=== PATIENT | male | born 2000 | race Caucasian/White ===

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

== ENCOUNTER 2022-05-18 23:40 | Emergency (ER) | payer OTHER ==
[2022-05-19 00:04] VITALS: TEMP 98.7
[2022-05-19] MEDS ORDERED: AZELASTINE 137MCG/SPRAY NASAL ONE (00:29)
--- NOTE | 2022-05-19 00:33 | ED ---
ENT HPI - General Chief complaint: ENT Stated complaint: something wiggling in nose Time Seen by Provider: 05/19/22 00:04 Source: patient, RN notes reviewed Mode of arrival: ambulatory Limitations: no limitations - History of Present Illness Initial comments: This is a 21-year-old male who presents to the emergency department for "something wiggling in my nose". Patient states that this has been an intermittent problem over the last month. States that it seems to occur at night. Also feels like the sensation of movement has been moving up into his head and near the ears. He has had intermittent problems with nasal drainage, congestion, and minor nosebleeds. He does not have any pain with this. Not currently being treated for allergies. Denies any history of similar symptoms in the past. He has not discussed this with his primary care provider or any other medical providers. Denies any fevers, chills, sore throat, cough, dyspnea, chest pain, palpitations, abdominal pain, nausea, vomiting, diarrhea, back pain, or headaches. - Related Data Home Medications Medication Instructions Recorded Confirmed No Known Home Medications 11/28/18 11/28/18 Allergies Allergy/AdvReac Type Severity Reaction Status Date / Time No Known Allergies Allergy Verified 12/09/21 20:43 Review of Systems ROS Statement: Those systems with pertinent positive or pertinent negative responses have been documented in the HPI. ROS Other: All systems not noted in ROS Statement are negative. Past Medical History Past Medical History: Asthma History of Any Multi-Drug Resistant Organisms: None Reported Past Surgical History: No Surgical Hx Reported Past Psychological History: ADD/ADHD Smoking Status: Vaper Past Alcohol Use History: None Reported Past Drug Use History: None Reported General Exam Limitations: no limitations General appearance: alert, in no apparent distress Head exam: Present: atraumatic, normocephalic, normal inspection ENT exam: Present: normal oropharynx, mucous membranes moist, TM's normal bilaterally, normal external ear exam, other (Inspection of the bilateral nares reveals no evidence of foreign bodies, mucus, or masses.) Respiratory exam: Present: normal lung sounds bilaterally. Absent: respiratory distress, wheezes, rales, rhonchi, stridor Cardiovascular Exam: Present: regular rate, normal rhythm, normal heart sounds. Absent: systolic murmur, diastolic murmur, rubs, gallop, clicks Neurological exam: Present: alert, oriented X3, CN II-XII intact Psychiatric exam: Present: normal affect, normal mood Skin exam: Present: warm, dry, intact, normal color. Absent: rash Course Vital Signs 05/19/22 05/19/22 00:01 00:42 Temperature 98.7 F Pulse Rate 88 90 Respiratory 19 18 Rate Blood Pressure 155/99 148/86 O2 Sat by Pulse 98 99 Oximetry Medical Decision Making - Medical Decision Making This is a 21-year-old male who presents to the emergency department for a foreign body sensation in the nose. Was pt. sent in by a medical professional or institution? @ -No Did you speak to anyone other than the patient for history? @ -No Did you review nursing and triage notes? @ -Yes, and I agree, it is accurate with regards to the patient's symptoms. Were old charts reviewed? @ -No Differential Diagnosis? @ -Differential foreign body sensation in the nose: Dust mites, parasites, allergic rhinitis, sinusitis, this is not meant to be an all-inclusive list. What testing was considered but not performed? (CT, X-rays, U/S, labs)? Why? @ -None What meds were considered but not given? Why? @ -None Did you discuss the management of the patient with other professionals? @ -No Did you reconcile home meds? @ -No Was smoking cessation discussed for >3mins.? @ -No Was critical care preformed (if so, how long)? @ -No Were there social determinants of health that impacted care today? How? (Homelessness, low income, unemployed, alcoholism, drug addiction, transportation, low edu. Level, literacy, decrease access to med. care, long term, rehab)? @ -No Was there de-escalation of care discussed even if they declined? (Discuss DNR or withdrawal of care, Hospice)? @ -No What co-morbidities impacted this encounter? (DM, HTN, Smoking, COPD, CAD, Cancer, CVA, Hep., AIDS, mental health diagnosis, sleep apnea, morbid obesity)? @ -None Was patient admitted / discharged? @ -Discharged. Physical examination of the ears, nose, and throat was entirely unremarkable aside from a minor cerumen impaction. I did not identify any evidence of foreign bodies or insects. Discussed with the patient that at this time we cannot visualize any abnormalities to account for his symptoms. He may have dust mites related to allergic rhinitis. He was given a bottle of azelastine nasal spray in the emergency department. Advised to use this twice daily in the event there is an allergic component to see if this offers any symptomatic relief. Also recommended he try a neti pot to rinse his sinuses. Information for ENT follow-up provided. He is advised to contact them for a follow-up appointment and to also follow-up with his primary care provider. Undiagnosed new problem with uncertain prognosis? @ -None Drug Therapy requiring intensive monitoring for toxicity (Heparin, Nitro, Insulin, Cardizem)? @ -None Were any procedures done? @ -None Diagnosis/symptom? @ -Allergic rhinitis Acute, or Chronic, or Acute on Chronic? @ -Acute Uncomplicated (without systemic symptoms) or Complicated (systemic symptoms)? @ -Uncomplicated Side effects of treatment? @ -None Exacerbation, Progression, or Severe Exacerbation] @ -Not applicable Poses a threat to life or bodily function? @ -No Return precautions reviewed in depth, the patient is instructed to return to the emergency department with any new, worsening, or concerning symptoms. Patient verbalized understanding. This case was discussed in detail with the attending ED physician, Dr. Lilly. Presentation, findings, and treatment plan discussed in detail as well. Disposition Clinical Impression: Allergic rhinitis Disposition: HOME SELF-CARE Instructions (If sedation given, give patient instructions): Allergic Rhinitis (ED) Additional Instructions: Return to the emergency department with any new, worsening, or concerning symptoms. Use the nasal spray provided as 2 sprays in each nostril twice daily. Follow up with your primary care provider in 1-2 days and discuss a referral to ENT. You can try contacting the office listed below to see if they will schedule you without an official referral from your primary care provider. You can also try using a neti pot. Is patient prescribed a controlled substance at d/c from ED?: No Referrals: Amberly Anne NPC [REFERRING] - 1-2 days Otoniel Harrison DO [Doctor of Osteopathic Medicine] - 1-2 days
[2022-05-19 00:47] VITALS: BP 148/86; PULSE 90; RESP 18
== END 2022-05-19 00:55 | disposition home or self-care (01) ==
LOC: EC 23:40
DX: J30.9 Allergic rhinitis, unspecified (principal); F17.290 Nicotine dependence, other tobacco product, uncomplicated
CPT/HCPCS: 99282

== ENCOUNTER 2022-10-19 20:10 | Emergency (ER) | payer OTHER ==
[2022-10-19 20:17] VITALS: TEMP 98.7
[2022-10-19] MEDS ORDERED: TRANEXAMIC ACID 1,000 MG/10 ML VIAL MISCELLANE ONE (20:26)
[2022-10-19] MEDS ORDERED: GELATIN SPONGE,ABSORB (LARGE) 1 EACH SPONGE TOPICAL STA (20:27)
--- NOTE | 2022-10-19 20:31 | ED ---
General Adult HPI - General Chief complaint: Wound/Laceration Stated complaint: LEFT THUMB CUT OFF TIP Time Seen by Provider: 10/19/22 20:19 Source: patient, RN notes reviewed Mode of arrival: ambulatory Limitations: no limitations - History of Present Illness Initial comments: 22-year-old male presents to the emergency department chief complaint of left thumb injury. He states that he was cutting onions at work when the knife slipped and cut the tip of his left thumb. He reports that this is very painful. He has normal range of motion to his fingers. He admits to a throbbing feeling in his thumb. Patient is up-to-date on his tetanus vaccination. - Related Data Previous Rx's Medication Instructions Recorded Cephalexin [Keflex] 500 mg PO Q6HR #20 cap 10/19/22 Allergies Allergy/AdvReac Type Severity Reaction Status Date / Time No Known Allergies Allergy Verified 10/19/22 21:32 Review of Systems ROS Statement: Those systems with pertinent positive or pertinent negative responses have been documented in the HPI. ROS Other: All systems not noted in ROS Statement are negative. Past Medical History Past Medical History: Asthma History of Any Multi-Drug Resistant Organisms: None Reported Past Surgical History: No Surgical Hx Reported Past Psychological History: ADD/ADHD Smoking Status: Vaper Past Alcohol Use History: Rare Past Drug Use History: None Reported General Exam Limitations: no limitations General appearance: alert, in no apparent distress Head exam: Present: atraumatic, normocephalic, normal inspection Eye exam: Present: normal appearance ENT exam: Present: normal exam, mucous membranes moist Neck exam: Present: normal inspection. Absent: tenderness, meningismus, lymphadenopathy Respiratory exam: Present: normal lung sounds bilaterally. Absent: respiratory distress, wheezes, rales, rhonchi, stridor Cardiovascular Exam: Present: regular rate, normal rhythm, normal heart sounds. Absent: systolic murmur, diastolic murmur, rubs, gallop, clicks Back exam: Present: normal inspection Neurological exam: Present: alert, oriented X3 Psychiatric exam: Present: normal affect, normal mood Skin exam: Present: warm, dry, normal color, other (superficial avulsion injury of left thumb) Course Vital Signs 10/19/22 10/19/22 20:13 21:45 Temperature 98.7 F Pulse Rate 109 H 68 Respiratory 20 16 Rate Blood Pressure 118/71 115/80 O2 Sat by Pulse 95 98 Oximetry Medical Decision Making - Medical Decision Making Was pt. sent in by a medical professional or institution (, PA, SENIOR ASIC DESIGN ENGINEER, urgent care, hospital, or correction...) When possible be specific @ -No Did you speak to anyone other than the patient for history (EMS, parent, family, police, friend...)? What history was obtained from this source @ -No Did you review nursing and triage notes (agree or disagree)? Why? @ -I reviewed and agree with nursing and triage notes Were old charts reviewed (outside hosp., previous admission, EMS record, old EKG, old radiological studies, urgent care reports/EKG's, correction records)? Report findings @ -No old charts were reviewed Differential Diagnosis (chest pain, altered mental status, abdominal pain women, abdominal pain men, vaginal bleeding, weakness, fever, dyspnea, syncope, headache, dizziness, GI bleed, back pain, seizure, CVA, palpatations, mental health, musculoskeletal)? @ -Differential Musculoskeletal Muscular strain, contusion, ligament sprain, fracture, arthritis, septic arthritis, bursitis, cellulitis, muscle spasm, nerve compression, DVT, arterial occlusion, herpes zoster, electrolyte abnormality, tumor.... This is not meant to be in all inclusive list EKG interpreted by me (3pts min.). @ -None X-rays interpreted by me (1pt min.). @ -None done CT interpreted by me (1pt min.). @ -None done U/S interpreted by me (1pt. min.). @ -None done What testing was considered but not performed or refused? (CT, X-rays, U/S, labs)? Why? @ -None What meds were considered but not given or refused? Why? @ -None Did you discuss the management of the patient with other professionals (professionals i.e. , DOTTY, SENIOR ASIC DESIGN ENGINEER, lab, RT, psych nurse, social worker assistant, hobber, teacher, special weapons unit officer, binder caser)? Give summary @ -No Was smoking cessation discussed for >3mins.? @ -No Was critical care preformed (if so, how long)? @ -No Were there social determinants of health that impacted care today? How? (Homelessness, low income, unemployed, alcoholism, drug addiction, transporta tion, low edu. Level, literacy, decrease access to med. care, prison, rehab)? @ -No Was there de-escalation of care discussed even if they declined (Discuss DNR or withdrawal of care, Hospice)? DNR status @ -No What co-morbidities impacted this encounter? (DM, HTN, Smoking, COPD, CAD, Cancer, CVA, ARF, Chemo, Hep., AIDS, mental health diagnosis, sleep apnea, morbid obesity)? @ -None Was patient admitted / discharged? Hospital course, mention meds given and route, prescriptions, significant lab abnormalities, going to OR and other pertinent info. @ -Discharged. Patient said the emergency department chief complaint of left thumb injury. He was cutting tomatoes at work when he cut the tip of his thumb with the knife. He admits to bleeding and pain. TXA was placed on the wound. Gelfoam placed on the wound and wound was dressed. Patient states that he is up to date on his tetanus vaccination. Patient was given Toradol and Tylenol for pain. Ice to alternate Tylenol and Motrin as needed for pain. Patient stable at time of discharge. Case discussed with my attending, Dr. Sneed Undiagnosed new problem with uncertain prognosis? @ -No Drug Therapy requiring intensive monitoring for toxicity (Heparin, Nitro, Insulin, Cardizem)? @ -No Were any procedures done? @ -No Diagnosis/symptom? @ -skin avulsion Acute, or Chronic, or Acute on Chronic? @ -acute Uncomplicated (without systemic symptoms) or Complicated (systemic symptoms)? @ -uncomplicated Side effects of treatment? @ -No Exacerbation, Progression, or Severe Exacerbation? @ -No Poses a threat to life or bodily function? How? (Chest pain, USA, [place], pneumonia, PE, COPD, DKA, ARF, appy, cholecystitis, CVA, Diverticulitis, Homicidal, Suicidal, threat to staff... and all critical care pts) @ -No Disposition Clinical Impression: Avulsion of skin of finger Disposition: HOME SELF-CARE Condition: Stable Instructions (If sedation given, give patient instructions): Skin Avulsion (ED) Additional Instructions: Please follow up with your primary care provider. Return to the emergency department for new or worsening symptoms. Prescriptions: Cephalexin [Keflex] 500 mg PO Q6HR #20 cap Is patient prescribed a controlled substance at d/c from ED?: No Referrals: None,Stated [Primary Care Provider] - 1-2 days Time of Disposition: 21:50
[2022-10-19] MEDS ORDERED: KETOROLAC 15 MG/ML 1 ML VIAL IM STA (20:42)
[2022-10-19] MEDS ORDERED: ACETAMINOPHEN TAB 500 MG TAB PO STA (20:42)
[2022-10-19 21:45] VITALS: BP 115/80; PULSE 68; RESP 16
== END 2022-10-19 21:58 | disposition home or self-care (01) ==
LOC: EC 20:10
DX: S63.105A Unspecified dislocation of left thumb, initial encounter (principal); J45.909 Unspecified asthma, uncomplicated; F17.290 Nicotine dependence, other tobacco product, uncomplicated; W26.0XXA Contact with knife, initial encounter
CPT/HCPCS: 99283; 96372; J1885

== ENCOUNTER 2022-11-22 05:17 | Emergency (ER) | payer OTHER ==
[2022-11-22 05:33] VITALS: RESP 16
--- NOTE | 2022-11-22 05:49 | ED ---
Chest Pain HPI - General Chief Complaint: Chest Pain Stated Complaint: Chest pain,jaw pain, headache Time Seen by Provider: 11/22/22 05:30 Source: patient Mode of arrival: ambulatory Limitations: no limitations - History of Present Illness Initial Comments: This patient is 22-year-old man who presents evaluation of left upper chest pains. He states that he was having difficult time getting to sleep tonight. This is not entirely unusual but tonight it was accompanied by pains that he described as being like static electricity. He was having these also up towards his neck. Patient was having palpitations. No other symptoms. Currently asymptomatic. MD Complaint: chest pain -: hour(s) Onset: during rest Pain Location: substernal, left chest Pain Radiation: neck Severity: moderate Quality: other (Like shocks) Consistency: intermittent Improves With: nothing Worsens With: nothing Treatments Prior to Arrival: none - Related Data Previous Rx's Medication Instructions Recorded Cephalexin [Keflex] 500 mg PO Q6HR #20 cap 10/19/22 Allergies Allergy/AdvReac Type Severity Reaction Status Date / Time No Known Allergies Allergy Verified 11/22/22 05:28 Review of Systems ROS Statement: Those systems with pertinent positive or pertinent negative responses have been documented in the HPI. ROS Other: All systems not noted in ROS Statement are negative. Constitutional: Denies: fever, chills Respiratory: Denies: cough, dyspnea Cardiovascular: Reports: as per HPI, chest pain, palpitations. Denies: edema Gastrointestinal: Denies: abdominal pain, nausea, vomiting, diarrhea Genitourinary: Denies: dysuria, hematuria Musculoskeletal: Denies: back pain Skin: Denies: rash Neurological: Denies: headache, weakness, numbness Psychiatric: Reports: anxiety EKG Findings - EKG Results: EKG: interpreted by ERMD, sinus rhythm, normal axis, normal QRS, normal ST/T EKG shows: bradycardia (Rate 56 bpm) Past Medical History Past Medical History: Asthma History of Any Multi-Drug Resistant Organisms: None Reported Past Surgical History: No Surgical Hx Reported Past Psychological History: ADD/ADHD Smoking Status: Vaper Past Alcohol Use History: Rare Past Drug Use History: None Reported General Exam Limitations: no limitations General appearance: alert, in no apparent distress Head exam: Present: atraumatic, normocephalic Eye exam: Present: normal appearance. Absent: scleral icterus, conjunctival injection ENT exam: Present: normal oropharynx Neck exam: Present: normal inspection Respiratory exam: Present: normal lung sounds bilaterally. Absent: respiratory distress, wheezes, rales, rhonchi, stridor Cardiovascular Exam: Present: regular rate, normal rhythm, normal heart sounds. Absent: systolic murmur, diastolic murmur, rubs, gallop GI/Abdominal exam: Present: soft. Absent: distended, tenderness, guarding, rebound, rigid, mass Extremities exam: Present: normal inspection, normal capillary refill. Absent: pedal edema, calf tenderness Back exam: Present: normal inspection. Absent: CVA tenderness (R), CVA tenderness (L) Neurological exam: Present: alert Skin exam: Present: warm, dry, intact, normal color. Absent: rash Course Vital Signs 11/22/22 11/22/22 11/22/22 05:26 06:04 06:36 Temperature 97.8 F 98.7 F Pulse Rate 62 55 L Pulse Rate [ 69 Cra ] Respiratory 16 16 Rate Blood Pressure 135/86 128/77 O2 Sat by Pulse 99 98 Oximetry Chest Pain MDM - MDM The patient had chest x-ray which I interpreted as being negative for acute infiltrate, congestive heart failure, pneumothorax Was pt. sent in by a medical professional or institution (, PA, BOX FABRICATOR, urgent care, hospital, or fdc...) When possible be specific @ -[No] Did you speak to anyone other than the patient for history (EMS, parent, family, police, friend...)? What history was obtained from this source @ -[No] Did you review nursing and triage notes (agree or disagree)? Why? @ -[I reviewed and agree with nursing and triage notes] Were old charts reviewed (outside hosp., previous admission, EMS record, old EKG, old radiological studies, urgent care reports/EKG's, fdc records)? Report findings @ -[No old charts were reviewed] Differential Diagnosis (chest pain, altered mental status, abdominal pain women, abdominal pain men, vaginal bleeding, weakness, fever, dyspnea, syncope, headache, dizziness, GI bleed, back pain, seizure, CVA, palpatations, mental health, musculoskeletal)? @ -[Differential Chest Pain: Stable Angina, Unstable Angina, STEMI, NSTEMI Aortic Dissection, Pneumothorax, Musculoskeletal, Esophageal Spasm GERD, Cholecystitis, Pancreatitis, Zoster, this is not meant to be an all-inclusive list. EKG interpreted by me (3pts min.). @ -[I interpreted As above] X-rays interpreted by me (1pt min.). @ -[I interpreted as above CT interpreted by me (1pt min.). @ -[None done] U/S interpreted by me (1pt. min.). @ -[None done] What testing was considered but not performed or refused? (CT, X-rays, U/S, labs)? Why? @ -[None] What meds were considered but not given or refused? Why? @ -[None] Did you discuss the management of the patient with other professionals (professionals i.e. , PA, BOX FABRICATOR, lab, RT, psych nurse, older adult social work specialist, digital librarian, teacher, recruitment officer, rn case mgr)? Give summary @ -[No] Was smoking cessation discussed for >3mins.? @ -[No] Was critical care preformed (if so, how long)? @ -[No] Were there social determinants of health that impacted care today? How? (Homelessness, low income, unemployed, alcoholism, drug addiction, transportation, low edu. Level, literacy, decrease access to med. care, [facility], rehab)? @ -[No] Was there de-escalation of care discussed even if they declined (Discuss DNR or withdrawal of care, Hospice)? DNR status @ -[No] What co-morbidities impacted this encounter? (DM, HTN, Smoking, COPD, CAD, Cancer, CVA, ARF, Chemo, Hep., AIDS, mental health diagnosis, sleep apnea, morbid obesity)? @ -[None] Was patient admitted / discharged? Hospital course, mention meds given and route, prescriptions, significant lab abnormalities, going to OR and other pertinent info. @ -[Patient is 22-year-old man here to have evaluation for chest pain. The history and physical exam is not suggestive of cardiac origin. The EKG and x- ray are also normal. Patient feeling better following evaluation and would like home. We discussed appropriate further care and follow-up Undiagnosed new problem with uncertain prognosis? @ -[No] Drug Therapy requiring intensive monitoring for toxicity (Heparin, Nitro, Insulin, Cardizem)? @ -[No] Were any procedures done? @ -[No] Diagnosis/symptom? @ -[Acute chest pain Acute, or Chronic, or Acute on Chronic? @ -[default] Uncomplicated (without systemic symptoms) or Complicated (systemic symptoms)? @ -[Uncomplicated Side effects of treatment? @ -[No] Exacerbation, Progression, or Severe Exacerbation? @ -[No] Poses a threat to life or bodily function? How? (Chest pain, [place], [place], pneumonia, PE, COPD, DKA, ARF, appy, cholecystitis, CVA, Diverticulitis, Homicidal, Suicidal, threat to staff... and all critical care pts) @ -[No] Disposition Clinical Impression: Atypical chest pain Disposition: HOME SELF-CARE Condition: Good Instructions (If sedation given, give patient instructions): Chest Pain (ED) Is patient prescribed a controlled substance at d/c from ED?: No Referrals: None,Stated [Primary Care Provider] - 1-2 days
[2022-11-22 06:42] VITALS: BP 128/77; PULSE 55; TEMP 98.7
--- NOTE | 2022-11-22 08:04 | XR ---
EXAMINATION TYPE: XR chest 2V DATE OF EXAM: 11/22/2022 COMPARISON: 12/06/2018 HISTORY: 22-year-old male with chest pain TECHNIQUE: PA and lateral views FINDINGS: Heart normal size. Aorta and pulmonary vasculature within normal limits. No mary consolidation or pl eural effusion. Slight interstitial prominence may be technical. IMPRESSION: Slight interstitial prominence may be technical. Correlate to exclude bronchitis or asthma. Otherwise , no acute process seen.
== END 2022-11-22 06:37 | disposition home or self-care (01) ==
LOC: EC 05:17
DX: R07.89 Other chest pain (principal); R00.1 Bradycardia, unspecified; J45.909 Unspecified asthma, uncomplicated; F17.290 Nicotine dependence, other tobacco product, uncomplicated
CPT/HCPCS: 71046; 93005; 99285